=== PATIENT | female | born 1985 | race Caucasian/White ===

== ENCOUNTER → 2018-05-25 | Emergency (ER) | payer BC, OTHER ==
[~2018-05-25] VITALS: Ht 167.6 cm; Wt 64.5 kg
[~2018-05-25] MED LIST: CYCL-1 PO; EPIN0.1516 IM; IBUP-1984 PO
[2018-05-25 16:23] VITALS: BP 138/63
== END | disposition home or self-care (01) ==
LOC: ER 16:12
DX: S13.4XXA Sprain of ligaments of cervical spine, initial encounter (principal); M54.6 Pain in thoracic spine; M62.838 Other muscle spasm; Z91.018 Allergy to other foods; V49.88XA Car occupant (driver) (passenger) injured in other specified transport accidents, initial encounter; Y93.89 Activity, other specified; Y92.413 State road as the place of occurrence of the external cause; Y99.9 Unspecified external cause status
CPT/HCPCS: 99283